=== PATIENT | female | born 1985 ===

== ENCOUNTER 2021-04-22 13:45 | Inpatient (IN) | payer OTHER ==
[~2021-04-22] VITALS: Ht 152.4 cm; Wt 66.2 kg
[2021-04-27] MEDS ORDERED: PRENATAL CAPLE1 EAC1 PO (00:50)
== END 2021-04-29 13:23 | disposition home or self-care (01) | DRG 807 ==
LOC: LDR 04-26 23:58 → OB/GYN 04-26 23:58
PROVIDERS: ADMIT Obstetrics & Gynecology; ATTEND Obstetrics & Gynecology
PROC: 4A1HXFZ Monitoring of Products of Conception, Cardiac Rhythm, External Approach (ICD-10-PCS; 2021-04-26)
PROC: 10E0XZZ Delivery of Products of Conception, External Approach (ICD-10-PCS; principal; 2021-04-27)
PROC: 0KQM0ZZ Repair Perineum Muscle, Open Approach (ICD-10-PCS; 2021-04-27)
PROC: 10907ZC Drainage of Amniotic Fluid, Therapeutic from Products of Conception, Via Natural or Artificial Opening (ICD-10-PCS; 2021-04-27)
DX: O70.1 Second degree perineal laceration during delivery (principal); Z37.0 Single live birth; Z3A.38 38 weeks gestation of pregnancy; Z20.822 Contact with and (suspected) exposure to COVID-19

== ENCOUNTER 2021-04-22 15:03 | Outpatient (CLI) | payer OTHER | END 2021-04-22 15:35 | disposition home or self-care (01) | LOC: NST 15:03 | PROVIDERS: ATTEND Obstetrics & Gynecology Maternal & Fetal Medicine | DX: Z34.83 Encounter for supervision of other normal pregnancy, third trimester (principal) ==